=== PATIENT | female | born 1930 | race Caucasian/White ===

== ENCOUNTER 2017-08-10 00:11 | Emergency (ER) | payer MEDICARE, OTHER ==
[2017-08-10] MEDS ORDERED: Adacel (T-DAP) 0.5 ML VIAL ONE (00:36)
[2017-08-10] MEDS ORDERED: Bacitracin Zinc 1 Packet ONE (01:14)
--- NOTE | 2017-08-10 08:36 | RAD ---
LEFT HAND 3 VIEWS: Date: 08/10/17 HISTORY: Patient missed a step and fell. COMPARISON: None. 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 There is no evidence of fracture. IMPRESSION: Multifocal degenerative change. No fracture. POS: [facility]
--- NOTE | 2017-08-10 08:39 | RAD ---
RADIOGRAPH RIGHT HAND 3 VIEWS: Date: 08/10/17 HISTORY: 86-year-old female status post acute traumatic right hand injury. FINDINGS: No dislocation. No displaced acute fracture identified. DJD of multiple joints: severe at first CMC, severe at first MCP, moderate to severe at triscaphe region, severe at ayvqhenk-mjcgmw-pwddlthd pavithra ction, and mild and moderate at various PIPs and DIPs. Diffuse osteopenia. The ulnar styloid process is completely truncated. IMPRESSION: 1. No evidence of acute fracture. 2. Severe osteoarthrosis. POS: [facility]
--- NOTE | 2017-08-10 09:18 | CT ---
PRELIMINARY REPORT/[facility]/EMERGENCY AFTER HOURS PROCEDURE: EXAM: CT Head Without Intravenous Contrast EXAM DATE/TIME: Exam ordered 08/10/2017 12:21 AM CLINICAL HISTORY: 86 years old, female; Injury or trauma; Fall; Initial encounter; Blunt trauma (contusions or hematom as); Without loss of consciousness; Patient HX: Fall after missing a step, lac to left lateral eyebr ow. Hs of stroke affecting left arm and leg, pt takes aspirin TECHNIQUE: Axial computed tomography images of the head/brain without intravenous contrast. All CT scans at [facility] facility use one or more dose reduction techniques, viz.: automated exposure control; ma/Kv adjust ment per patient size (including targeted exams where dose is matched to indication; i.e. head); or iterative reconstruction technique. COMPARISON: No relevant prior studies available. FINDINGS: Brain: Volume loss and chronic small vessel ischemic change. Old lacunar infarction(s). Small area o f right frontal encephalomalacia/gliosis. No hemorrhage. Ventricles: Unremarkable. No ventriculomegaly. Bones/joints: Unremarkable. No acute fracture. Soft tissues: Unremarkable. Sinuses: Unremarkable as visualized. No acute sinusitis. Mastoid air cells: Unremarkable as visualized. No mastoid effusion. IMPRESSION: No intracranial hemorrhage. Thank you for allowing us to participate in the care of your patient. Dictated and Authenticated by: Jarred Lozano MD 08/10/2017 1:17 AM Central Time ([place] \T\ [place]) FINAL REPORT NONCONTRAST HEAD CT: Date: 08/10/17 HISTORY: 86-year-old female. Fall. Post-traumatic pain. Laceration to left eyebrow. COMPARISON: 01/30/14. TECHNIQUE: Noncontrast head CT is performed from skull base to skull vertex. FINDINGS: This report is in agreement with the preliminary report by [facility]. There is no intracranial post-traum atic sequelae. Age-appropriate atrophy. Chronic small vessel ischemic changes of the white matter id entified. Remote right caudate nucleus lacunar infarct is noted. POS: [facility]
--- NOTE | 2017-08-10 09:21 | CT ---
PRELIMINARY REPORT/[facility]/EMERGENCY AFTER HOURS PROCEDURE: EXAM: CT Cervical Spine Without Intravenous Contrast EXAM DATE/TIME: Exam ordered 08/10/2017 12:41 AM CLINICAL HISTORY: 86 years old, female; Injury or trauma; Fall; Initial encounter; Blunt trauma; Patient HX: Fall afte r missing step, lac to left eyebrow, hs of CVA, no complaints of neck pain TECHNIQUE: Axial computed tomography images of the cervical spine without intravenous contrast. All CT scans at this facility use one or more dose reduction techniques, viz.: automated exposure control; ma/kV adjustment per patient size (including targeted exams where dose is matched to indication; i.e. head ); or iterative reconstruction technique. Coronal and sagittal reformatted images were created and reviewed. COMPARISON: No relevant prior studies available. FINDINGS: Vertebrae: Unremarkable. No acute fracture. Discs/spinal canal/neural foramina: Degenerative change. No fracture. No spinal canal stenosis. Soft tissues: Unremarkable. Lung apices: Unremarkable as visualized. IMPRESSION: No fracture. Thank you for allowing us to participate in the care of your patient. Dictated and Authenticated by: Jarred Lozano MD 08/10/2017 1:20 AM Central Time ([place] \T\ [place]) FINAL REPORT CERVICAL SPINE CT WITHOUT CONTRAST: Date: 08/10/17 HISTORY: Fall. Post-traumatic pain. COMPARISON: None. TECHNIQUE: Cervical spine CT is performed without contrast. Reformatted images are submitted for interpretation . FINDINGS: This report agrees with the preliminary report by [facility]. No post-traumatic sequelae. No fracture. Str aightening of normal cervical lordosis likely due to patient position, muscle spasm, or cervical col lar. POS: [facility]
== END 2017-08-10 02:00 | disposition home or self-care (01) ==
LOC: SCSER 00:11
DX: S09.90XA Unspecified injury of head, initial encounter (principal); S61.213A Laceration without foreign body of left middle finger without damage to nail, initial encounter; S61.217A Laceration without foreign body of left little finger without damage to nail, initial encounter; S61.411A Laceration without foreign body of right hand, initial encounter; I10 Essential (primary) hypertension; F41.9 Anxiety disorder, unspecified; F32.9 Major depressive disorder, single episode, unspecified; Z23 Encounter for immunization; W01.198A Fall on same level from slipping, tripping and stumbling with subsequent striking against other object, initial encounter; Z86.73 Personal history of transient ischemic attack (TIA), and cerebral infarction without residual deficits
CPT/HCPCS: 12002; 70450; 72125; 90471; 90715

== ENCOUNTER 2017-08-11 21:00 | Emergency (ER) | payer MEDICARE, OTHER ==
[2017-08-11] MEDS ORDERED: Clindamycin 150 MG CAP ONE (21:24)
[2017-08-11] MEDS ORDERED: Bacitracin Zinc 1 Packet ONE (21:31)
== END 2017-08-11 21:43 | disposition home or self-care (01) ==
LOC: SCSER 21:00
DX: S61.213D Laceration without foreign body of left middle finger without damage to nail, subsequent encounter (principal); S61.217D Laceration without foreign body of left little finger without damage to nail, subsequent encounter; L08.9 Local infection of the skin and subcutaneous tissue, unspecified; I10 Essential (primary) hypertension; I69.354 Hemiplegia and hemiparesis following cerebral infarction affecting left non-dominant side; F41.9 Anxiety disorder, unspecified; F32.9 Major depressive disorder, single episode, unspecified; W19.XXXD Unspecified fall, subsequent encounter
CPT/HCPCS: 99283